=== PATIENT | male | born 1990 ===

== ENCOUNTER 2022-01-28 14:28 | Emergency (ER) | payer OTHER, SELFPAY ==
[2022-01-28] VITALS (19 sets, daily range): BP systolic 132–179; BP diastolic 65–93; PULSE 72–140; RESP 16–31; O2SAT 79–99
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
--- NOTE | 2022-01-28 14:40 | ED_ITS ---
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 Provider] -
[2022-01-28 15:16] LABS: Add Manual Diff / Slide Review NO; Basophils Absolute Auto 100 /uL (0-100); Basophils Percent Auto 0.7 % (0-2); Eosinophils Absolute Auto 100 /uL (0-450); Eosinophils Percent Auto 0.8 % (2-4); Hematocrit 36.5 % (41-53); Hemoglobin 12.5 g/dL (13.5-17.5); Lymphocytes Absolute Auto 2800 /uL (1100-4500); Lymphocytes Percent Auto 36.9 % (25-40); Mean Corpuscular HGB Conc 34.4 % (30-36); Mean Corpuscular Hemoglobin 29.2 PG (26-34); Mean Corpuscular Volume 85.1 fL (80-100); Monocytes Absolute Auto 900 /uL (0-900); Monocytes Percent Auto 11.4 % (3-14); Neutrophils Absolute Auto 3800 /uL (1500-7000); Neutrophils Percent Auto 50.2 % (50-75); Platelet Count 294 X10^3/uL (150-400); Red Blood Cell Count 4.29 X10^6/uL (4.5-5.9); Red Cell Distribution Width 13.2 % (11.6-14.8); White Blood Cell Count 7.6 X10^3/uL (4.5-11.0)
[2022-01-28 15:18] LABS: INR 1.1 (0.9-1.3); Prothrombin Time 11.9 SECONDS (10.1-12.7)
[2022-01-28 15:21] LABS: PTT Partial Thromboplastin Tim 28 SECONDS (26.4-36.2)
[2022-01-28 15:22] LABS: Alanine Aminotransferase 20 IU/L (<50); Albumin Globulin Ratio 1.9 (1.0-2.8); Alkaline Phosphatase 64 U/L (38-126); Aspartate Aminotransferase 29 IU/L (17-59); BUN Creatinine Ratio 19.6 (6-22); Bilirubin Total 0.5 mg/dL (0.2-1.3); Blood Urea Nitrogen 21 mg/dL (9-20); Calcium 9.2 mg/dL (8.4-10.2); Carbon Dioxide 23 mmol/L (22-32); Chloride 102 mmol/L (98-107); Creatine Kinase 230 U/L (55-170); Estimated Glomerular Filt Rate > 60.0 mL/min (>60); Ethanol (ETOH) < 10 mg/dL; Globulin 2.7 g/dL (1.7-4.1); Glucose 125 mg/dL (70-100); HEMOLYSIS < 15 (0-50); Lipase 100 U/L (23-300); Potassium 3.2 mmol/L (3.4-5.1); Sodium 139 mmol/L (137-145); Total Protein 7.7 g/dL (6.3-8.2)
[2022-01-28 15:33] LABS: Troponin I < 0.012 ng/mL (0.01-0.034)
[2022-01-28 15:37] LABS: Creatine Kinase MB 2.23 ng/mL (<2.37)
[2022-01-28 16:29] LABS: Ur Creatinine Normal (Normal); Ur Specific Gravity Normal (Normal); Urine pH Normal (Normal)
[2022-01-28 16:30] LABS: UR Morphine/Opiate cutoff 300 Negative (Negative); Urine Amphetamines Positive (Negative); Urine Barbiturates Negative (Negative); Urine Benzodiazepines Negative (Negative); Urine Cocaine Negative (Negative); Urine MDMA Positive (Negative); Urine Methadone Negative (Negative); Urine Methamphetamines Positive (Negative); Urine Oxycodone Negative (Negative); Urine Phencyclidine Negative (Negative); Urine Tetrahydrocannabinol Positive (Negative); Urine Tricyclic Antidepressant Negative (Negative)
--- NOTE | 2022-01-28 16:52 | DI.CT.S_ITS ---
PROCEDURE: CT CERVICAL SPINE WO CON INDICATIONS: inadequate exam, altered TECHNIQUE: Noncontrast 3 mm thick sections acquired from the skull base to the T4 level. Sagittal and coronal reformats were then constructed. For radiation dose reduction, the following was used: automated exposure control, adjustment of mA and/or kV according to patient size. COMPARISON: [facility], CT, CT CERVICAL SPINE WO CON, 01/28/2022, 14:45. FINDINGS: Image quality: Minimal limitation by motion artifact Bones: No fractures or dislocations. Visualized superior ribs are intact. Soft tissues: Prevertebral soft tissues are normal in thickness. No paravertebral hematomas. No apical pneumothoraces. IMPRESSION: No evidence of fracture or traumatic malalignment. Approved by: Kade Kumar M.D. on 01/28/2022 at 16:41
--- NOTE | 2022-01-28 21:00 | PC.NURSE ---
pt aao x [address] but does not remember events that brought him to the ED, pt polite and cooperative with care, restraints removed and pt HOB elevated and pt given snack
--- NOTE | 2022-01-28 22:07 | PC.NURSE ---
pt given sandwich, tolerating well
--- NOTE | 2022-01-28 22:53 | PC.NURSE ---
rubalcava removed after bulb deflated with 400ml dark urine noted in bag
--- NOTE | 2022-01-29 00:22 | PC.NURSE ---
several attempts made per Richard to find pt a ride home, pt dc to waiting room to attempt to find a ride tomorrow
== END 2022-01-29 00:52 | disposition home or self-care (01) ==
PROVIDERS: Emergency Medicine; Emergency Provider Emergency Medicine; PCP Internal Medicine
DX: S22.32XA Fracture of one rib, left side, initial encounter for closed fracture (principal); F19.10 Other psychoactive substance abuse, uncomplicated; V89.2XXA Person injured in unspecified motor-vehicle accident, traffic, initial encounter
CPT/HCPCS: 36415; 70450; 71045; 71260; 72125; 72170; 74177; 80053; 80305; 80320; 82550; 82553; 83690; 84484; 85025; 85610; 85730; 93005; 93010; 99284; 99285; Q9967